=== PATIENT | female | born 1945 | race Caucasian/White ===

== ENCOUNTER 2016-08-06 10:27 | Emergency (ER) | payer MEDICARE, BC ==
[2016-08-06] MEDS ORDERED: ASPIRIN 81 MG CHEW TAB ONE (10:49)
[2016-08-06] MEDS ORDERED: DUONEB INH ONE ×2 (11:38)
[2016-08-06] MEDS ORDERED: METHYLPRED SOD SUCC 125 MG/2 ML VIAL ONE (12:37)
== END 2016-08-06 13:16 | disposition home or self-care (01) ==
LOC: ER 10:27
DX: R06.00 Dyspnea, unspecified (principal); J98.01 Acute bronchospasm; I10 Essential (primary) hypertension
CPT/HCPCS: 36415; 71010; 80053; 82550; 82553; 83735; 83880; 84484; 85025; 85379; 85610; 85730; 93005; 94640; 96374; 99285; J2930